=== PATIENT | female | born 1950 | race Caucasian/White ===

== ENCOUNTER 2018-02-04 07:19 | Observation (INO) ==
[2018-02-04] MEDS ORDERED: ASPIRIN CHEW 81 MG TABLET PO STA (08:07)
[2018-02-04] MEDS ORDERED: ALUM/MAG/SIMETH/LIDO VISC 1:1 30 ML BOTTLE PO STA (08:08)
[2018-02-04 08:21] LABS: Basophils # 0.1 10*3/uL (0.0-0.2); Basophils % 0.6 % (0.0-0.8); Eosinophils # 0.3 10*3/uL (0.0-0.87); Eosinophils % 3.9 % (0.00-10.9); Hematocrit 42.9 VOL% (35.7-47.0); Hemoglobin 14.4 GM/DL (12.0-16.0); Immature Granulocytes % 0.3 %; Immature Granulocytes Absolute 0.02 #; Mean Corpuscular HGB Conc 33.6 GM/DL (32-36); Mean Corpuscular Hemoglobin 31 PG (27-34); Mean Corpuscular Volume 92.3 FL (87-102); Mean Platelet Volume 10.7 FL (9.6-12.0); Monocytes # 0.6 10*3/uL (0.11-0.8); Neutrophils # 2.8 10*3/uL (1.4-7.4); Neutrophils % 36.2 % (38.7-73.9); Platelet Count 265 T/CUMM (130-400); Red Blood Count 4.65 MC/CUMM (3.8-5.5); Red Cell Distribution Width 13.1 % (9.3-17.3); White Blood Count 7.8 T/CUMM (4-12)
[2018-02-04 08:31] LABS: Albumin 3.9 G/DL (3.4-5.0); Bilirubin,Total 0.5 MG/DL (0.2-1.0); Calcium 9.3 MG/DL (8.5-10.1); Osmolality,Calculated 286.1 MOS/KG (273-304); Total Protein 7.4 G/DL (6.4-8.3)
[2018-02-04 08:47] LABS: Atypical Lymphocytes Few; Eosinophils 6 % (0-10); Lymphocytes 51 % (20-55); Platelet Estimate Adequate; Segmented Neutrophils 35 % (50-85); Total Cells Counted 100
[2018-02-04] MEDS ORDERED: HEPARIN 1,000 UNIT/1 ML VIAL IV STA (09:55)
[2018-02-04] MEDS ORDERED: HEPARIN DRIP 25,000 UNITS/500 ML PREMIX IV SCH (10:00)
[2018-02-04] MEDS ORDERED: HEPARIN 5,000 UNIT/1 ML VIAL IV STA (10:03)
[2018-02-04] MEDS ORDERED: LACTATED RINGERS 1,000 ML IV ONE (10:04)
[2018-02-04 10:07] LABS: INR 0.9; Partial Thromboplastin Time 27.9 SECS (0-40)
[2018-02-04] MEDS ORDERED: ACETAMINOPHEN 325 MG TABLET PO PRN (11:30)
[2018-02-04] MEDS: POTASSIUM CHLORIDE 20 MEQ TABLET PO PRN ×4 (14:50→20:13)
[2018-02-04 15:59] LABS: Apearance,Urine CLEAR (Clear); Bilirubin,Urine Negative (Negative); Blood, Urine Small mg/dL (Negative); Glucose,Urine (UA) Negative (Negative); Ketones,Urine Negative (Negative); Nitrite,Urine Negative (Negative); Protein,Urine Negative; Urine Color Colorless (Yellow); Urine Specific Gravity 1.011 (1.001-1.035); Urine Urobilinogen < 2.0 EU/DL (0.2-1.0)
[2018-02-04 16:32] LABS: Troponin I 0.501 NG/ML (0.00-0.045)
[2018-02-04] MEDS: RIVAROXABAN 15 MG TABLET PO SCH (16:42)
[2018-02-04 22:13] LABS: Troponin I 0.317 NG/ML (0.00-0.045)
[2018-02-05 02:57] LABS: Basophils % 0.4 % (0.0-0.8); Eosinophils # 0.3 10*3/uL (0.0-0.87); Eosinophils % 3.2 % (0.00-10.9); Hematocrit 37.1 VOL% (35.7-47.0); Hemoglobin 12.7 GM/DL (12.0-16.0); Immature Granulocytes % 0.6 %; Immature Granulocytes Absolute 0.05 #; Lymphocytes # 3.2 10*3/uL (1.4-4.0); Lymphocytes % 40.8 % (21.3-54.2); Mean Corpuscular HGB Conc 34.2 GM/DL (32-36); Mean Corpuscular Hemoglobin 31 PG (27-34); Mean Corpuscular Volume 90.3 FL (87-102); Mean Platelet Volume 10.7 FL (9.6-12.0); Monocytes # 0.6 10*3/uL (0.11-0.8); Monocytes % 7.6 % (1.7-12.7); Neutrophils # 3.7 10*3/uL (1.4-7.4); Neutrophils % 47.4 % (38.7-73.9); Platelet Count 246 T/CUMM (130-400); Red Blood Count 4.11 MC/CUMM (3.8-5.5); Red Cell Distribution Width 13.1 % (9.3-17.3); White Blood Count 7.7 T/CUMM (4-12)
[2018-02-05 03:03] LABS: INR 1.1; PT Patient Result 11.5 SECS; Partial Thromboplastin Time 31.8 SECS (0-40)
[2018-02-05 03:11] LABS: Calcium 9.1 MG/DL (8.5-10.1); Osmolality,Calculated 289.7 MOS/KG (273-304); Potassium 4.5 MMOL/L (3.5-5.1)
[2018-02-05] MEDS ORDERED: PANTOPRAZOLE 40 MG TABLET PO SCH (09:00)
[2018-02-05] MEDS: RIVAROXABAN 15 MG TABLET PO SCH (10:13)
[2018-02-05] MEDS ORDERED: FAMOTIDINE 20 MG TABLET PO SCH (10:30)
[2018-02-05] MEDS ORDERED: TRIAMTERENE/HCTZ 37.5-25 MG CAPSULE PO SCH (10:30)
[2018-02-05] MEDS ORDERED: SIMVASTATIN 40 MG TABLET PO SCH (10:30)
[2018-02-05] MEDS ORDERED: ATENOLOL 50 MG TABLET PO SCH (10:30)
[2018-02-05 12:01] VITALS: BP 122/71
[2018-02-05] MEDS ORDERED: ATENOLOL 25 MG TABLET PO SCH (21:00)
== END 2018-02-05 12:42 | disposition home or self-care (01) ==
LOC: N.ED 07:19 → N.EDINP 07:19 → SUATTDRO 11:21 → N.TELEN 11:45
PROVIDERS: ADMIT Internal Medicine; ATTEND Internal Medicine